=== PATIENT | female | born 1990 | race Two or more races ===

== ENCOUNTER 2022-06-26 23:57 | Emergency (ER) | payer OTHER ==
[~2022-06-26] VITALS: Ht 162.6 cm; Wt 63.5 kg
--- NOTE | 2022-06-27 00:23 | NUR ---
[place] FROM A CLUB/BAR. TO ER BED 15. ALTERED, RESPONSIVE TO NOXIOUS STIMULI. PER EMS, PT HAD TO MUCH TO DRINK. BROUGHT IN FOR ETOH. WAS AT THE BEDSIDE FOR EVAL.
--- NOTE | 2022-06-27 00:42 | NUR ---
friend adilson ballard [phone]
--- NOTE | 2022-06-27 08:16 | NUR ---
Patient discharged to home in stable condition. Written and verbal after care instructions given. Patient verbalizes understanding of instruction. Picked up by friend [place].
[2022-06-27 08:17] VITALS: BP 126/70
== END 2022-06-27 08:18 | disposition home or self-care (01) ==
LOC: ER 23:59
DX: F10.129 Alcohol abuse with intoxication, unspecified (principal); Y90.9 Presence of alcohol in blood, level not specified

== ENCOUNTER 2023-06-16 17:51 | Emergency (ER) | payer OTHER ==
[~2023-06-16] VITALS: Ht 162.6 cm; Wt 63.5 kg
[2023-06-16 18:56] LABS: BASOPHILS % (AUTO) 0.6 % (0.0-2.0); EOSINOPHILS % (AUTO) 0.4 % (0.0-6.0); HEMATOCRIT 46 % (33-45); HEMOGLOBIN 15.2 g/dL (11.5-14.8); LYMPHOCYTES # (AUTO) 2.8 K/uL (0.8-4.8); LYMPHOCYTES % (AUTO) 45.2 % (20.0-44.0); MEAN CORPUSCULAR HEMOGLOBIN 33 PG (26.0-33.0); MEAN CORPUSCULAR HGB CONC 33 g/dl (31.0-36.0); MEAN CORPUSCULAR VOLUME 99 fL (82-100); MONOCYTES # (AUTO) 0.2 K/uL (0.1-1.30); MONOCYTES % (AUTO) 3.8 % (2.0-12.0); PLATELET COUNT (AUTO) 247 K/uL (150-450); RED BLOOD CELL COUNT(AUTO) 4.66 MIL/uL (4.0-5.2); RED CELL DISTRIBUTION WIDTH 13.9 % (11.5-15.0); WHITE BLOOD COUNT (AUTO) 6.1 K/uL (4.3-11.0)
[2023-06-16 19:21] LABS: CALCIUM, SERUM 8.9 mg/dL (8.5-10.1); CREATININE 0.6 mg/dL (0.6-1.3)
[2023-06-16 19:28] LABS: BILIRUBIN,DIRECT 0.1 mg/dL (0.0-0.2); BILIRUBIN,TOTAL 0.1 mg/dL (0.2-1.0); TOTAL PROTEIN, SERUM 8.1 g/dL (6.4-8.2)
[2023-06-16 19:29] LABS: SALICYLATE 1.7 mg/dL (2.8-20.0)
[2023-06-16 20:06] VITALS: BP 128/71; TEMP 98.1; O2SAT 99
== END 2023-06-16 20:07 | disposition home or self-care (01) ==
LOC: ER 17:51
DX: F10.129 Alcohol abuse with intoxication, unspecified (principal); Y90.8 Blood alcohol level of 240 mg/100 ml or more
CPT/HCPCS: 36415; 80048-TC; 80076-TC; 85025-TC; G0480

== ENCOUNTER 2023-06-20 22:44 | Emergency (ER) | payer OTHER ==
[~2023-06-20] VITALS: Ht 165.1 cm; Wt 63.5 kg
[2023-06-20 22:51] VITALS: TEMP 98.6
[2023-06-21 04:46] VITALS: BP 126/87; O2SAT 97
== END 2023-06-21 08:57 | disposition home or self-care (01) ==
LOC: ER 22:46
DX: F10.129 Alcohol abuse with intoxication, unspecified (principal); Y90.9 Presence of alcohol in blood, level not specified
CPT/HCPCS: 82962-TC

== ENCOUNTER 2023-06-21 12:11 | Emergency (ER) | payer OTHER ==
[~2023-06-21] VITALS: Ht 162.6 cm; Wt 67.1 kg
[2023-06-21 13:13] LABS: BASOPHILS % (AUTO) 0.5 % (0.0-2.0); HEMATOCRIT 46 % (33-45); HEMOGLOBIN 15.1 g/dL (11.5-14.8); LYMPHOCYTES # (AUTO) 0.9 K/uL (0.8-4.8); LYMPHOCYTES % (AUTO) 9.8 % (20.0-44.0); MEAN CORPUSCULAR HEMOGLOBIN 32 PG (26.0-33.0); MEAN CORPUSCULAR HGB CONC 33 g/dl (31.0-36.0); MEAN CORPUSCULAR VOLUME 97 fL (82-100); MONOCYTES # (AUTO) 0.1 K/uL (0.1-1.30); MONOCYTES % (AUTO) 1.5 % (2.0-12.0); NEUTROPHILS # (AUTO) 8.3 K/uL (1.8-8.9); NEUTROPHILS % (AUTO) 88.2 % (43.0-81.0); PLATELET COUNT (AUTO) 284 K/uL (150-450); WHITE BLOOD COUNT (AUTO) 9.4 K/uL (4.3-11.0)
[2023-06-21 13:28] LABS: ALBUMIN 4.1 g/dL (3.4-5.0); BILIRUBIN,DIRECT 0.1 mg/dL (0.0-0.2); BILIRUBIN,TOTAL 0.5 mg/dL (0.2-1.0); CALCIUM, SERUM 8.7 mg/dL (8.5-10.1); CREATININE 0.5 mg/dL (0.6-1.3); POTASSIUM 4.4 mmol/L (3.5-5.1)
[2023-06-21 13:39] LABS: SALICYLATE 0.8 mg/dL (2.8-20.0)
[2023-06-21 17:25] LABS: APPEARANCE,URINE CLEAR (CLEAR); BILIRUBIN,URINE NEGATIVE (NEGATIVE); BLOOD, URINE 3+ Ery/uL (NEGATIVE); COLOR,URINE YELLOW (YELLOW); KETONES,URINE 1+ mg/dL (NEGATIVE); LEUKOCYTE ESTERASE ,URINE NEGATIVE (NEGATIVE); NITRITE, URINE NEGATIVE (NEGATIVE); PH,URINE 5.5 (5.0-8.0); PROTEIN,URINE TRACE mg/dl (NEGATIVE); UGLUCOSE NEGATIVE (NEGATIVE); UROBILINOGEN,URINE 0.2 EU/dL (0.2)
[2023-06-21 17:48] LABS: AMPHETAMINE, URINE NEGATIVE (NEGATIVE); BARBITURATE, URINE NEGATIVE (NEGATIVE); BENZODIAZEPINE, URINE NEGATIVE (NEGATIVE); CANNABINOID, URINE NEGATIVE (NEGATIVE); COCCAINE, URINE NEGATIVE (NEGATIVE); OPIATE, URINE NEGATIVE (NEGATIVE); PHENCYCLIDINE SCREEN,URINE NEGATIVE (NEGATIVE)
[2023-06-21 18:06] LABS: ADD URINE CULTURE YES; BACTERIA,URINE 2+ /HPF (None Seen); RBC,URINE 51-80 /HPF (0-2); SQUAMOUS EPITHELIAL CELL,UR 21-50 /HPF (None Seen); WBC,URINE 0-2 /HPF (0-3)
[2023-06-21 18:32] VITALS: BP 129/99; TEMP 98.7; O2SAT 98
== END 2023-06-21 18:33 | disposition home or self-care (01) ==
LOC: ER 12:16
DX: F10.129 Alcohol abuse with intoxication, unspecified (principal); Y90.8 Blood alcohol level of 240 mg/100 ml or more
CPT/HCPCS: 36415; 80048-TC; 80076-TC; 81001; 85025-TC; 87086-TC; G0480

== ENCOUNTER → 2024-07-15 | Emergency (ER) | payer OTHER ==
[~2024-07-15] VITALS: Ht 157.5 cm; Wt 61.2 kg
[2024-07-15 13:06] VITALS: TEMP 97.9
[2024-07-15 16:10] VITALS: BP 115/80; O2SAT 99
== END | disposition home or self-care (01) ==
LOC: ER 13:18
DX: F10.129 Alcohol abuse with intoxication, unspecified (principal); Y90.9 Presence of alcohol in blood, level not specified
CPT/HCPCS: 82962-TC

== ENCOUNTER 2024-08-18 00:10 | Emergency (ER) | payer OTHER ==
[~2024-08-18] VITALS: Ht 167.6 cm; Wt 63.5 kg
[2024-08-18] MEDS ORDERED: ONDANSETRON HCL/PF 4 MG/2 ML VIAL ONE (00:43)
[2024-08-18 00:56] LABS: BASOPHILS % (AUTO) 0.3 % (0.0-2.0); EOSINOPHILS % (AUTO) 0.1 % (0.0-6.0); HEMATOCRIT 35 % (33-45); HEMOGLOBIN 11.9 g/dL (11.5-14.8); LYMPHOCYTES # (AUTO) 2.8 K/uL (0.8-4.8); LYMPHOCYTES % (AUTO) 28.6 % (20.0-44.0); MEAN CORPUSCULAR HEMOGLOBIN 31 PG (26.0-33.0); MEAN CORPUSCULAR HGB CONC 34 g/dl (31.0-36.0); MEAN CORPUSCULAR VOLUME 93 fL (82-100); MONOCYTES # (AUTO) 0.3 K/uL (0.1-1.30); MONOCYTES % (AUTO) 3.5 % (2.0-12.0); NEUTROPHILS # (AUTO) 6.6 K/uL (1.8-8.9); NEUTROPHILS % (AUTO) 67.5 % (43.0-81.0); PLATELET COUNT (AUTO) 186 K/uL (150-450); RED BLOOD CELL COUNT(AUTO) 3.79 MIL/uL (4.0-5.2); RED CELL DISTRIBUTION WIDTH 13.9 % (11.5-15.0); WHITE BLOOD COUNT (AUTO) 9.8 K/uL (4.3-11.0)
[2024-08-18] MEDS: IV NS 0.9% 1,000 ML IV ONE (00:56)
[2024-08-18] MEDS: ONDANSETRON HCL/PF - ER 4 MG/2 ML VIAL IV ONE (00:57)
[2024-08-18 01:10] LABS: ALBUMIN 3.5 g/dL (3.4-5.0); BILIRUBIN,TOTAL 0.8 mg/dL (0.2-1.0); CALCIUM, SERUM 8.3 mg/dL (8.5-10.1); CREATININE 0.6 mg/dL (0.6-1.3); POTASSIUM 3.8 mmol/L (3.5-5.1); TOTAL PROTEIN, SERUM 6.6 g/dL (6.4-8.2)
[2024-08-18 03:01] LABS: PREGNANCY TEST URINE QUAL NEGATIVE (NEGATIVE)
[2024-08-18 03:03] LABS: APPEARANCE,URINE CLEAR (CLEAR); BILIRUBIN,URINE NEGATIVE (NEGATIVE); BLOOD, URINE 2+ Ery/uL (NEGATIVE); COLOR,URINE YELLOW (YELLOW); KETONES,URINE 3+ mg/dL (NEGATIVE); LEUKOCYTE ESTERASE ,URINE NEGATIVE (NEGATIVE); NITRITE, URINE NEGATIVE (NEGATIVE); PROTEIN,URINE TRACE mg/dl (NEGATIVE); UGLUCOSE NEGATIVE (NEGATIVE); UROBILINOGEN,URINE 0.2 EU/dL (0.2)
[2024-08-18 03:07] LABS: AMPHETAMINE, URINE NEGATIVE (NEGATIVE); BENZODIAZEPINE, URINE NEGATIVE (NEGATIVE); CANNABINOID, URINE NEGATIVE (NEGATIVE); COCCAINE, URINE NEGATIVE (NEGATIVE); OPIATE, URINE NEGATIVE (NEGATIVE); PHENCYCLIDINE SCREEN,URINE NEGATIVE (NEGATIVE)
[2024-08-18 03:08] LABS: BARBITURATE, URINE POSITIVE (NEGATIVE)
[2024-08-18 03:13] LABS: ADD URINE CULTURE NO; BACTERIA,URINE Rare /HPF (None Seen); MUCUS,URINE Few /LPF (None Seen); WBC,URINE NONE SEEN /HPF (0-3)
[2024-08-18 05:38] VITALS: TEMP 98.1; O2SAT 98
== END 2024-08-18 05:38 | disposition home or self-care (01) ==
LOC: ER 00:26
DX: F10.129 Alcohol abuse with intoxication, unspecified (principal); Y90.6 Blood alcohol level of 120-199 mg/100 ml
CPT/HCPCS: 99285; 96374; 96361; 93005; 71045; 85025; 84703; 81001; 36415; 80053; 84484; 80320; 80307; J2405 ×2; J7030; G0480